=== PATIENT | male | born 1965 | race African-American/Black ===

== ENCOUNTER 2016-07-07 22:46 | Emergency (ER) | payer OTHER ==
[2016-07-07 22:53] VITALS: TEMP 97.6; BMI 35.8
--- NOTE | 2016-07-07 23:26 | PDOC ---
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 The patient reports headaches, nasal congestion, and a non productive cough. He states he recently visited [facility] ED 3 days ago and was discharged with a 10 day treatment of amoxicillin and a nasal spray. He reports a worsening frontal and right sided pressure-like headache when he coughs. He states his headache is worsened when he lays down at night. Denies fevers or chills. Denies chest pain or shortness of breath. Denies abdominal pain, nausea, vomiting, or diarrhea. Denies dysuria or chnages in urinary output. Social hx: The patient smoked cigarettes. <Jayda Sanchez - Last Filed: 07/08/16 00:16> <Heidi Wright - Last Filed: 07/08/16 04:54> - General Chief Complaint: Cold Symptoms Stated Complaint: HEADACHE/COUGH Time Seen by Provider: 07/07/16 23:25 Past History <Jayda Sanchez - Last Filed: 07/08/16 00:16> - Past Medical History Anemia: No Asthma: Yes Cancer: No Cardiac Disorders: No CVA: No COPD: No CHF: No DVT: Yes Dementia: No Diabetes: No GI Disorders: No Disorders: No HTN: Yes Hypercholesterolemia: No Liver Disease: No Psychiatric Problems: Yes (ANXIETY.) Seizures: No Thyroid Disease: No Other medical history: lupus - Surgical History Abdominal Surgery: Yes (hernia repair) Appendectomy: No Cardiac Surgery: No Cholecystectomy: No Lung Surgery: No Neurologic Surgery: No Orthopedic Surgery: Yes (right ankle 2006) - Immunization History Immunization Up to Date: Yes - Psycho/Social/Smoking Cessation Hx Anxiety: No Suicidal Ideation: No Smoking History: Current every day smoker Have you smoked in the past 12 months: Yes Number of Cigarettes Smoked Daily: 5 Information on smoking cessation initiated: No 'Breaking Loose' booklet given: 12/04/15 Hx Alcohol Use: No Drug/Substance Use Hx: No Substance Use Type: None <Heidi Wright - Last Filed: 07/08/16 04:54> - Past Medical History Allergies/Adverse Reactions: Allergies Allergy/AdvReac Type Severity Reaction Status Date / Time shellfish derived Allergy Hives Verified 07/07/16 22:56 Home Medications: Ambulatory Orders Albuterol Sulfate Inhaler - [Ventolin HFA Inhaler -] 1 - 2 inh PO QID PRN Escitalopram Oxalate [Lexapro -] 20 mg PO HS 03/02/14 Montelukast Na [Singulair -] 10 mg PO HS 03/02/14 Risperidone [Risperdal] 2 mg PO HS 03/02/14 Rivaroxaban [Xarelto -] 20 mg PO HS 03/02/14 Amlodipine Besylate 5 mg PO DAILY 06/02/15 Budesonide/Formeterol Fumarate [SYMBICORT 160/4.5mcg -] 1 inh PO DAILY 07/13/15 Hydroxychloroquine Sulfate [Plaquenil] 200 mg PO BID 07/13/15 Levocetirizine Dihydrochloride 5 mg PO PRN PRN 07/13/15 Hydrochlorothiazide [Hctz -] 25 mg PO DAILY 07/07/16 Ibuprofen [Motrin -] 400 mg PO TID 07/07/16 Losartan Potassium [Cozaar -] 25 mg PO DAILY 07/07/16 Diphenhydramine [Benadryl -] 1 tab PO BID #20 capsule 07/08/16 Review of Systems - Review of Systems Able to Perform ROS?: Yes Comments:: 07/08/16 00:16 CONSTITUTIONAL: Absent: fever, chills, diaphoresis, generalized weakness, malaise, loss of appetite HEENT: + nasal congestion Absent: rhinorrhea, throat pain, throat swelling, difficulty swallowing, mouth swelling, ear pain, eye pain, visual Changes CARDIOVASCULAR: Absent: chest pain, syncope, palpitations, irregular heart rate, lightheadedness , peripheral edema RESPIRATORY: + cough Absent: shortness of breath, dyspnea with exertion, orthopnea, wheezing, stridor , hemoptysis GASTROINTESTINAL: Absent: abdominal pain, abdominal distension, nausea, vomiting, diarrhea, constipation, melena, hematochezia GENITOURINARY: Absent: dysuria, frequency, urgency, hesitancy, hematuria, flank pain, genital pain MUSCULOSKELETAL: Absent: myalgia, arthralgia, joint swelling SKIN: Absent: rash, itching, pallor HEMATOLOGIC/IMMUNOLOGIC: Absent: easy bleeding, easy bruising, lymphadenopathy, frequent infections ENDOCRINE: Absent: unexplained weight gain, unexplained weight loss, heat intolerance, cold intolerance NEUROLOGIC: + headache Absent: focal weakness or paresthesias, dizziness, unsteady gait, seizure, mental status changes, bladder or bowel incontinence PSYCHIATRIC: Absent: anxiety, depression, suicidal or homicidal ideation, hallucinations. All Other Systems: Reviewed and Negative <Jayda Sanchez - Last Filed: 07/08/16 00:16> *Physical Exam - Vital Signs Last Vital Signs Temp Pulse Resp BP Pulse Ox 97.6 F 86 18 128/93 97 07/07/16 22:48 07/08/16 00:15 07/07/16 22:48 07/08/16 00:15 07/08/16 00:15 - Physical Exam Comments: 07/08/16 00:16 GENERAL: Well developed, well nourished. Awake and alert. No acute distress. HEENT: Normocephalic, atraumatic. PERRLA, EOMI. No conjunctival pallor. Sclera are non- icteric. Moist mucous membranes. Oropharynx is clear. NECK: Supple. Full ROM. No JVD. Carotid pulses 2+ and symmetric, without bruits. No thyromegaly. NCo lymphadenopathy. CARDIOVASCULAR: Regular rate and rhythm. No murmurs, rubs, or gallops. Distal pulses are 2+ and symmetric. PULMONARY: No evidence of respiratory distress. Lungs clear to auscultation bilaterally. No wheezing, rales or rhonchi. ABDOMINAL: Soft. Non-tender. Non-distended. No rebound or guarding. No organomegaly. Normoactive bowel sounds. MUSCULOSKELETAL Normal range of motion at all joints. No bony deformities or tenderness. No CVA tenderness. EXTREMITIES: No cyanosis. No clubbing. No edema. No calf tenderness. SKIN: Warm and dry. Normal capillary refill. No rashes. No jaundice. NEUROLOGICAL: Alert, awake, appropriate. Cranial nerves 2-12 intact. No deficits to light touch and temperature in face, upper extremities and lower extremities. No motor deficits in the in face, upper extremities and lower extremities. Normoreflexic in the upper and lower extremities. Normal speech. Toes are down- going bilaterally. Gait is normal without ataxia. PSYCHIATRIC: Cooperative. Good eye contact. Appropriate mood and affect. <Jayda Sanchez - Last Filed: 07/08/16 00:16> - Vital Signs Last Vital Signs Temp Pulse Resp BP Pulse Ox 97.6 F 103 H 18 130/89 99 07/07/16 22:48 07/07/16 22:48 07/07/16 22:48 07/07/16 22:48 07/07/16 22:48 <Heidi Wright - Last Filed: 07/08/16 04:54> ED Treatment Course - Medications Given in the ED: ED Medications Discontinued Medications Generic Name Dose Route Start Last Admin Trade Name Freq PRN Reason Stop Dose Admin Diphenhydramine HCl 50 mg 07/08/16 00:12 07/08/16 00:13 Benadryl - PO 07/08/16 00:13 50 mg ONCE ONE Administration <Jayda Sanchez - Last Filed: 07/08/16 00:16> Medical Decision Making - Medical Decision Making 07/08/16 04:49 Pt comes with cold and sinusitis. States that he was at [facility] 3 days ago and he was given amoxil (clavulanate?) and that he has been taking the meds and that he is not getting better after 3 days of abx. I explained that he needs to complete 7 days to be treated and to know if he is getting better. He feels congested, and wants meds for relief of congestion. He has HTN and I will not give him sudafed, as it raises BP; I will give benadryl. Pt will follow with PMD. He is a smoker and we discussed the need to quit smoking. He understands and states that he is trying. Pt has normal exam in the ER. BP is 126 systolic and his HR is in the 80s BPM. He is stable for discharge. <Heidi Wright - Last Filed: 07/08/16 04:54> *DC/Admit/Observation/Transfer - Attestations Scribe Attestion: 07/08/16 00:16 Documentation prepared by Jayda Sanchez, acting as medical dermatologist for Heidi Wright MD <Jayda Sanchez - Last Filed: 07/08/16 00:16> - Discharge Dispostion Admit: No <Heidi Wright - Last Filed: 07/08/16 04:54> Diagnosis at time of Disposition: Sinusitis - Discharge Dispostion Disposition: HOME Condition at time of disposition: Stable - Prescriptions Prescriptions: Diphenhydramine [Benadryl -] 1 tab PO BID #20 capsule - Referrals Referrals: You Mathews [Primary Care Provider] - - Patient Instructions Printed Discharge Instructions: DI for Common Cold, DI for Sinusitis, Nicotine Replacement Therapy Helps Reduce Smoking Temporarily, But Reductio, Serious Ways to Stop Smoking
[2016-07-08] MEDS ORDERED: diphenhydrAMINE HCL 25 MG CAPSULE (FP) PO ONE ×2 (00:12→00:14)
[2016-07-08 00:16] VITALS: BP 128/93; PULSE 86
== END 2016-07-08 00:30 | disposition home or self-care (01) ==
LOC: JER 22:46
DX: J32.8 Other chronic sinusitis (principal); I10 Essential (primary) hypertension; J45.909 Unspecified asthma, uncomplicated; F17.210 Nicotine dependence, cigarettes, uncomplicated; L93.0 Discoid lupus erythematosus; Z86.718 Personal history of other venous thrombosis and embolism; Z79.01 Long term (current) use of anticoagulants
CPT/HCPCS: 71020-TC; 99281-25

== ENCOUNTER 2016-10-01 13:05 | Emergency (ER) | payer OTHER ==
[2016-10-01 13:12] VITALS: BP 119/87; PULSE 80; TEMP 98.2; BMI 30.4
--- NOTE | 2016-10-01 14:03 | PDOC ---
History of Present Illness - General Chief Complaint: Respiratory Stated Complaint: COLD Time Seen by Provider: 10/01/16 13:38 History Source: Patient Exam Limitations: No Limitations - History of Present Illness Initial Comments: 10/01/16 13:56 Patient is a 51-year-old male, history of hypertension, lupus, asthma, anxiety, presents emergency Department with productive, green sputum cough. Cough is worse at night. Patient states he has attempted to take [id number]-diwcsic medication, TheraFlu, cough medicine with no resolve. Concerned because it is getting worse. No fever, feels sweaty at night. Denies a chest pain or shortness of breath, no dyspnea, no hemoptysis. Allergies: No known allergies Medications: See medication list Family History: Non-contributory Social History: Denies smoking, alcohol use, or IVDU Review of Systems GENERAL/CONSTITUTIONAL: No fever or chills. No weakness. No weight change. HEAD, EYES, EARS, NOSE AND THROAT: No change in vision. No ear pain or discharge. No sore throat. CARDIOVASCULAR: No chest pain or shortness of breath. RESPIRATORY: Cough, no wheezing, or hemoptysis. GASTROINTESTINAL: No nausea, vomiting, diarrhea or constipation. No rectal bleeding. GENITOURINARY: No dysuria, frequency, or change in urination. MUSCULOSKELETAL: No joint or muscle swelling or pain. No neck or back pain. SKIN AND BREASTS: No rash or easy bruising. NEUROLOGIC: No headache, vertigo, loss of consciousness, or loss of sensation. PSYCHIATRIC: No depression or anxiety. ENDOCRINE: No increased thirst. No abnormal weight change. HEMATOLOGIC/LYMPHATIC: No anemia, easy bleeding, or history of blood clots. ALLERGIC/IMMUNOLOGIC: No hives or skin allergy. No latex allergy. Physical Exam: GENERAL: The patient is awake, alert, and fully oriented, in no acute distress. HEAD: Normal with no signs of trauma. EYES: Pupils equal, round and reactive to light, extraocular movements intact, sclera anicteric, conjunctiva clear. ENT: Ears normal, nares patent, oropharynx clear without exudates. Moist mucous membranes. No uvula deviation NECK: Normal range of motion, supple without lymphadenopathy, JVD, or masses. LUNGS: Breath sounds rhonchi bilaterally, clear to auscultation bilaterally. No wheezes, and no crackles. HEART: Regular rate and rhythm, normal S1 and S2 without murmur, rub or gallop. ABDOMEN: Soft, nontender, normoactive bowel sounds. No guarding, no rebound. No masses. No bruising or abrasions MUSCULOSKELETAL: Normal range of motion, no edema. No clubbing or cyanosis. No cords, erythema, or tenderness. No CVA Tenderness with fist. NEUROLOGICAL: Cranial nerves II through XII grossly intact. Normal speech, normal gait. SKIN: Warm, Dry, normal turgor, no rashes or lesions noted. 10/01/16 14:05 Past History - Past Medical History Allergies/Adverse Reactions: Allergies Allergy/AdvReac Type Severity Reaction Status Date / Time shellfish derived Allergy Hives Verified 10/01/16 13:09 Home Medications: Ambulatory Orders Albuterol Sulfate Inhaler - [Ventolin HFA Inhaler -] 1 - 2 inh PO QID PRN Escitalopram Oxalate [Lexapro -] 20 mg PO HS 03/02/14 Montelukast Na [Singulair -] 10 mg PO HS 03/02/14 Risperidone [Risperdal] 2 mg PO HS 03/02/14 Rivaroxaban [Xarelto -] 20 mg PO HS 03/02/14 Amlodipine Besylate 5 mg PO DAILY 06/02/15 Budesonide/Formeterol Fumarate [SYMBICORT 160/4.5mcg -] 1 inh PO DAILY 07/13/15 Hydroxychloroquine Sulfate [Plaquenil] 200 mg PO BID 07/13/15 Levocetirizine Dihydrochloride 5 mg PO PRN PRN 07/13/15 Hydrochlorothiazide [Hctz -] 25 mg PO DAILY 07/07/16 Losartan Potassium [Cozaar -] 25 mg PO DAILY 07/07/16 Azithromycin [Zithromax 250mg Tablets -] 250 mg PO UTDICT #6 tab 10/01/16 Promethazine HCl [Phenergan Plain 6.25 MG/5 ML -] 5 ml PO TID #60 ml 10/01/16 Anemia: No Asthma: Yes Cancer: No Cardiac Disorders: No CVA: No COPD: No CHF: No DVT: Yes Dementia: No Diabetes: No GI Disorders: No Disorders: No HTN: Yes Hypercholesterolemia: No Liver Disease: No Psychiatric Problems: Yes (ANXIETY.) Seizures: No Thyroid Disease: No Other medical history: lupus - Surgical History Abdominal Surgery: Yes (hernia repair) Appendectomy: No Cardiac Surgery: No Cholecystectomy: No Lung Surgery: No Neurologic Surgery: No Orthopedic Surgery: Yes (right ankle 2006) - Immunization History Immunization Up to Date: Yes - Psycho/Social/Smoking Cessation Hx Anxiety: No Suicidal Ideation: No Smoking History: Current some day smoker Have you smoked in the past 12 months: Yes Number of Cigarettes Smoked Daily: 5 Information on smoking cessation initiated: No 'Breaking Loose' booklet given: 12/04/15 Hx Alcohol Use: No Drug/Substance Use Hx: No Substance Use Type: None *Physical Exam - Vital Signs Last Vital Signs Temp Pulse Resp BP Pulse Ox 98.2 F 80 18 119/87 100 10/01/16 13:09 10/01/16 13:09 10/01/16 13:09 10/01/16 13:09 10/01/16 13:09 Medical Decision Making - Medical Decision Making 10/01/16 14:03 A/P: Patient is a 51-year-old male with history of asthma, lupus, hypertension, presents emergency department for cough which is been greater than 6 days. Patient states that symptoms are getting worse. Because of patient's history of obesity patient home on azithromycin and promethazine for cough, follow up with PMD in 3 days if symptoms persist. If any chest pain, shortness of breath, or any other concerns return to ER *DC/Admit/Observation/Transfer Diagnosis at time of Disposition: Cough - Discharge Dispostion Disposition: HOME Condition at time of disposition: Good Admit: No - Prescriptions Prescriptions: Promethazine HCl [Phenergan Plain 6.25 MG/5 ML -] 5 ml PO TID #60 ml Azithromycin [Zithromax 250mg Tablets -] 250 mg PO UTDICT #6 tab - Patient Instructions Printed Discharge Instructions: Cough (Alternative Therapy), Cough Additional Instructions: Open the office of your primary care DrHéctor in 3 days if symptoms persist. If any chest pain, shortness of breath, or any other concerns return to ER
== END 2016-10-01 14:19 | disposition home or self-care (01) ==
LOC: JERFT 13:05
DX: R05 Cough (principal); J45.909 Unspecified asthma, uncomplicated; I10 Essential (primary) hypertension; F41.9 Anxiety disorder, unspecified; F17.210 Nicotine dependence, cigarettes, uncomplicated
CPT/HCPCS: 99281-25

== ENCOUNTER 2017-02-14 09:28 | Emergency (ER) | payer OTHER ==
[2017-02-14 09:33] VITALS: BMI 39.8
[2017-02-14 10:43] LABS: BASO % 0.9 % (0-2.0); HEMATOCRIT 45.7 % (35.4-49); HEMOGLOBIN 14.7 GM/dL (11.7-16.9); LYMPH % 26.8 % (8-40); MCHC 32.1 g/dl (32.0-35.9); MEAN CELL VOLUME 80.8 fl (80-96); MEAN PLT VOLUME 7.7 fl (7.5-11.1); MONO % 8.5 % (3.8-10.2); NEUT % 60.8 % (42.8-82.8); PLATELET COUNT 326 K/MM3 (134-434); RBC 5.65 M/mm3 (4.00-5.60); RDW 14.3 % (11.9-15.9)
[2017-02-14] MEDS ORDERED: ACETAMINOPHEN 325 MG TABLET (FP) PO ONE (10:43)
[2017-02-14] MEDS ORDERED: ACETAMINOPHEN 325 MG TABLET (FP) ONE (10:47)
--- NOTE | 2017-02-14 11:08 | PDOC ---
History of Present Illness <Domingo Garcia - Last Filed: 02/14/17 13:26> - General History Source: Patient Exam Limitations: No Limitations - History of Present Illness Initial Comments: 02/14/17 15:17 The patient is a 51 year old male, with a significant past medical history of hypertension, lupus, DVT on Eliquis, anxiety, and asthma, who presents to the emergency department with, left sided rib area/ left flank pain for approx. 10 hours. The patient reports that last night around midnight he coughed and experienced a sharp pain on his left side. The patient states the pain does not radiate. The patient reports the pain is exacerbated with movement and alleviated while sitting still. The patient denies recent heavy lifting or strenuous activity. The patient reports no new recent leg swelling but states his right leg is normally swollen after walking or activity. Patient states he is compliant with Xarelto and takes the medication every night. He denies any recent fevers, chills, headache or dizziness. He denies any recent nausea, vomit, diarrhea or constipation. He denies any recent chest pain or shortness of breath or dyspena on exertion. Allergies: Shellfish derived Past surgical history: Hernia surgery approx. one year ago. Primary Care Physician: Dr. You Mathews <Osei Dodson - Last Filed: 02/14/17 15:18> - General Chief Complaint: Pain Stated Complaint: ABD/SIDE PAIN, COUGH Time Seen by Provider: 02/14/17 10:16 Past History - Past Medical History Anemia: No Asthma: Yes Cancer: No Cardiac Disorders: No CVA: No COPD: No CHF: No DVT: Yes (rt thigh) Dementia: No Diabetes: No GI Disorders: No Disorders: No HTN: Yes Hypercholesterolemia: No Liver Disease: No Psychiatric Problems: Yes (ANXIETY.) Seizures: No Thyroid Disease: No Other medical history: lupus - Surgical History Abdominal Surgery: Yes (hernia repair) Appendectomy: No Cardiac Surgery: No Cholecystectomy: No Lung Surgery: No Neurologic Surgery: No Orthopedic Surgery: Yes (right ankle 2006) - Immunization History Immunization Up to Date: Yes - Suicide/Smoking/Psychosocial Hx Smoking History: Current some day smoker Have you smoked in the past 12 months: Yes Number of Cigarettes Smoked Daily: 5 Information on smoking cessation initiated: Yes 'Breaking Loose' booklet given: 01/05/18 Hx Alcohol Use: No Drug/Substance Use Hx: No Substance Use Type: None <Domingo Garcia - Last Filed: 02/14/17 13:26> <Osei Dodson - Last Filed: 02/14/17 15:18> - Past Medical History Allergies/Adverse Reactions: Allergies Allergy/AdvReac Type Severity Reaction Status Date / Time shellfish derived Allergy Hives Verified 02/14/17 09:29 Home Medications: Ambulatory Orders Albuterol Sulfate Inhaler - [Ventolin HFA Inhaler -] 1 - 2 inh PO QID PRN Escitalopram Oxalate [Lexapro -] 20 mg PO HS 03/02/14 Montelukast Na [Singulair -] 10 mg PO HS 03/02/14 Risperidone [Risperdal] 2 mg PO HS 03/02/14 Rivaroxaban [Xarelto -] 20 mg PO HS 03/02/14 Amlodipine Besylate 5 mg PO DAILY 06/02/15 Budesonide/Formeterol Fumarate [SYMBICORT 160/4.5mcg -] 1 inh PO DAILY 07/13/15 Hydroxychloroquine Sulfate [Plaquenil] 200 mg PO BID 07/13/15 Levocetirizine Dihydrochloride 5 mg PO PRN PRN 07/13/15 Hydrochlorothiazide [Hctz -] 25 mg PO DAILY 07/07/16 Losartan Potassium [Cozaar -] 25 mg PO DAILY 07/07/16 Review of Systems - Review of Systems Comments:: 02/14/17 15:17 Constitutional - Pt denies Fever, Chills, weakness, HEENT: denies vision changes, sore throat Respiratory: Denies cough, sob, hemoptysis Cardiac: denies chest pain, palpitations, light headedness, leg swelling Abd/GI: denies abd pain, nausea, vomiting, blood per rectum, melena, diarrhea : denies dysuria, frequency, discharge Musculskelatal: +Left sided rib area/ flank pain. No joint swelling skin - denies bruising, erythema, rash neurological: denies headache, numbness, focal weakness, tingling, ataxia, weakness hematologic: denies anemia, easy bruising, easy bleeding <Osei Dodson - Last Filed: 02/14/17 15:18> *Physical Exam - Vital Signs Last Vital Signs Temp Pulse Resp BP Pulse Ox 99.3 F 88 18 136/89 100 02/14/17 09:30 02/14/17 09:30 02/14/17 09:30 02/14/17 09:30 02/14/17 09:30 <Domingo Garcia - Last Filed: 02/14/17 13:26> - Vital Signs Last Vital Signs Temp Pulse Resp BP Pulse Ox 99.3 F 88 18 136/89 100 02/14/17 09:30 02/14/17 09:30 02/14/17 09:30 02/14/17 09:30 02/14/17 09:30 - Physical Exam Comments: 02/14/17 15:18 GENERAL: The patient is awake, alert, and fully oriented, Nontoxic - in no acute distress. HEAD: Normocephalic, atraumatic. EYES: extraocular movements intact, sclera anicteric, conjunctiva clear. ENT: Normal voice, Moist mucous membranes. NECK: Normal range of motion, supple without lymphadenopathy, JVD, or masses. LUNGS: Breath sounds equal, clear to auscultation bilaterally. No wheezes, no crackles, no rales. HEART: Regular rate and rhythm, normal S1 and S2 without murmur, rub or gallop. ABDOMEN: Soft, normoactive bowel sounds. No guarding, no rebound. No masses. BACK: + exactly reproducible tenderness left flank rib area. EXTREMITIES: +2 pitting edema right leg. -Lianet's sign. No calf tenderness. Normal range of motion. No clubbing or cyanosis. No cords, erythema, or tenderness. NEUROLOGICAL: No facial assymetry, Normal speech, normal gait. PSYCH: Normal mood, normal affect. SKIN: Warm, Dry, normal turgor, no rashes or lesions noted. <Osei Dodson - Last Filed: 02/14/17 15:18> Heart Score/ECG Review - ECG Impressions Comment:: 02/14/17 11:12 Twelve-lead EKG was performed and reviewed by me. There is normal sinus rhythm with a normal rate. Rate of 82 The axis is normal. Nonspecific T wave abnormalities PVC present <Domingo Garcia - Last Filed: 02/14/17 13:26> ED Treatment Course - LABORATORY CBC & Chemistry Diagram: 02/14/17 10:37 02/14/17 10:37 - ADDITIONAL ORDERS Additional order review: 02/14/17 10:37 RBC 5.65 H MCV 80.8 MCHC 32.1 RDW 14.3 MPV 7.7 Neutrophils % 60.8 Lymphocytes % 26.8 Monocytes % 8.5 Eosinophils % 3.0 Basophils % 0.9 - RADIOLOGY Radiology Studies Ordered: Category Date Time Status DUPLEX VASCUL US-1 LEG [US] Stat Ultrasound 02/14/17 10:43 Ordered - Medications Given in the ED: ED Medications Discontinued Medications Generic Name Dose Route Start Last Admin Trade Name Freq PRN Reason Stop Dose Admin Acetaminophen 975 mg 02/14/17 10:43 02/14/17 10:50 Tylenol - PO 02/14/17 10:44 975 mg ONCE ONE Administration <Domingo Garcia - Last Filed: 02/14/17 13:26> - LABORATORY CBC & Chemistry Diagram: 02/14/17 10:37 02/14/17 10:37 - ADDITIONAL ORDERS Additional order review: 02/14/17 10:37 RBC 5.65 H MCV 80.8 MCHC 32.1 RDW 14.3 MPV 7.7 Neutrophils % 60.8 Lymphocytes % 26.8 Monocytes % 8.5 Eosinophils % 3.0 Basophils % 0.9 - RADIOLOGY Radiograph Interpretation: 02/14/17 11:26 EXAM#: TYPE/EXAM: RESULT: [id number] RAD/CHEST X-RAY PORTABLE* Chest pain. Single portable chest x-ray. Comparison study July 05, 2016. Unremarkable contour of the cardiomediastinal silhouette. No evidence of pneumonia, CHF, pleural effusion or pneumothorax. The pulmonary vasculature is normal. No evidence of bulky hilar adenopathy. Intact visualized osseous structures. Normal variant unfused spinous process of T1, T2. Impression. No evidence of active pulmonary disease. Reported By: Rai Gunn MD 02/14/17 13:05 EXAM#: TYPE/EXAM: RESULT: [id number] US/DUPLEX VASCUL US-1 LEG EXAM: Right lower extremity venous duplex. INDICATION: Clinical suspicion for right lower extremity deep vein thrombosis. TECHNIQUE: Real-time grayscale, color Doppler and spectral Doppler sonogram of the right common femoral vein including its junction with the greater saphenous vein, the femoral, profunda femoral, popliteal and posterior tibial veins was performed by the technologist utilizing compression maneuvers, in the right lower extremity. Images are submitted for review. COMPARISON: No prior right lower extremity duplex. FINDINGS: There is no evidence of acute deep vein thrombosis in the right lower extremity. The interrogated veins, as listed above, demonstrate compressibility and flow related Doppler signal. IMPRESSION: No evidence of deep vein thrombosis in the right lower extremity, as above. Reported By: Cuca Torres DO - Medications Given in the ED: ED Medications Discontinued Medications Generic Name Dose Route Start Last Admin Trade Name Freq PRN Reason Stop Dose Admin Acetaminophen 975 mg 02/14/17 10:43 02/14/17 10:50 Tylenol - PO 02/14/17 10:44 975 mg ONCE ONE Administration <Osei Dodson - Last Filed: 02/14/17 15:18> Medical Decision Making - Medical Decision Making 02/14/17 11:08 51-year-old gentleman history of lupus, DVT on eliquis, htn, presents with complaint of L sided chest pain. Pt states he started having chest pain overnight worse when he moves around and takes a deep breath no pain at rest and not moving. pt denies any sob, burch, cough, hemoptysis, new leg swelling. pt notes he does have frequent leg swelling in the R leg that worse after he walks and improved when he sleeps. he does not have any signficant new leg swelling. no homans sign of calf tenderness. pt also has reproducible tenderness on his L chest suspect muscle strain consider cardiac etiology also consider PE, however unlikely without any sob, cough, hemoptysis and already currently on a/c will ck cxr, labs, US of leg to r/o DVT A portion of this note was documented by scribe services under my direction. I have reviewed the details of the note, within reason, and agree with the documentation with the following case summary and management plan written by me 02/14/17 13:26 pts labs reviewed cxr neg DVT study negative will dc the pt with pmd fu and supportive care dx: bianca herr I discussed the physical exam findings, ancillary test results and final diagnoses with the patient. I answered all of the patient's questions. The patient was satisfied with the care received and felt comfortable with the discharge plan and treatment plan. The patient will call their primary care physician within 24 hours to arrange follow-up and will return to the Emergency Department with any new, persistent or worsening symptoms. <Domingo Garcia - Last Filed: 02/14/17 13:26> *DC/Admit/Observation/Transfer - Discharge Dispostion Admit: No <Domingo Garcia - Last Filed: 02/14/17 13:26> - Attestations Scribe Attestion: 02/14/17 11:31 Documentation prepared by Osei Dodson, acting as remote medical coder for Domingo Garcia MD. <Osei Dodson - Last Filed: 02/14/17 15:18> Diagnosis at time of Disposition: Rib pain on left side - Discharge Dispostion Disposition: HOME Condition at time of disposition: Improved - Referrals Referrals: You Mathesw [Primary Care Provider] - - Patient Instructions Printed Discharge Instructions: DI for Chest Pain Additional Instructions: Return to the emergency department immediately with ANY new, persistent or worsening symptoms. I suspect that you're chest pain is due to a muscle strain. Take Tylenol as needed for pain. Avoid any heavy lifting. If you have any shortness of breath, or coughing up blood, have worsening pain or any other symptoms return for further evaluation. You MUST call and follow up with your doctor in 4-5 days for further evaluation of your symptoms. Results were discussed with you. Please make sure your doctor reviews the results of your emergency evaluation. Print Language: AZERI - Post Discharge Activity
[2017-02-14 11:18] LABS: ALBUMIN 3.5 g/dl (3.4-5.0); ANION GAP 6 (8-16); BILIRUBIN,TOTAL 0.6 mg/dL (0.2-1.0); BLOOD UREA NITROGEN 15 mg/dL (7-18); CALCIUM 8.4 mg/dL (8.5-10.1); CHLORIDE 104 mmol/L (98-107); CO2 27 mmol/L (21-32); CREATININE 1.4 mg/dL (0.7-1.3); GLUCOSE,RANDOM 96 mg/dL (74-106); POTASSIUM 4.3 mmol/L (3.5-5.1); SGOT/AST 27 U/L (15-37); SGPT/ALT 48 U/L (12-78); SODIUM 137 mmol/L (136-145); TOT PROT 7.5 g/dl (6.4-8.2)
[2017-02-14 11:21] LABS: ALK PHOS 61 U/L (45-117)
[2017-02-14 12:47] VITALS: BP 127/82; PULSE 78; TEMP 98.4
--- NOTE | 2017-02-15 13:34 | EKG ---
Test Reason : Blood Pressure : / mmHG Vent. Rate : 082 BPM Atrial Rate : 082 BPM P-R Int : 128 ms QRS Dur : 104 ms QT Int : 376 ms P-R-T Axes : 029 037 030 degrees QTc Int : 439 ms SINUS RHYTHM WITH OCCASIONAL PREMATURE VENTRICULAR COMPLEXES NONSPECIFIC T WAVE ABNORMALITY ABNORMAL ECG WHEN COMPARED WITH ECG OF 04-DEC-2015 11:50, PREMATURE VENTRICULAR COMPLEXES ARE NOW PRESENT Confirmed by BILLIE JUARES MD ([id number]) on 02/15/2017 1:34:32 PM Referred By: Confirmed By:BILLIE JUARES MD
== END 2017-02-14 13:46 | disposition home or self-care (01) ==
LOC: JER 09:28 → JERFT 09:28 → JER 13:46
DX: R07.81 Pleurodynia (principal); I10 Essential (primary) hypertension; F41.9 Anxiety disorder, unspecified; J45.909 Unspecified asthma, uncomplicated
CPT/HCPCS: 36415; 71045-TC; 80053; 84484; 85025; 93005; 93010; 93971-TC; 99283-25

== ENCOUNTER 2018-02-19 15:30 | Emergency (ER) | payer OTHER ==
--- NOTE | 2018-02-19 15:41 | PDOC ---
Rapid Medical Evaluation Time Seen by Provider: 02/19/18 15:39 Medical Evaluation: Allergies Allergy/AdvReac Type Severity Reaction Status Date / Time shellfish derived Allergy Hives Verified 03/19/17 22:38 02/19/18 15:39 Pt c/o: cough, nasal congestion, worse at night, no fever, no meds taken Pt on brief exam: VSS, LCTA Pt ordered for: cxr, Pt to proceed to the ED Discharge Disposition - Diagnosis Nasal congestion, Cough - Referrals - Patient Instructions - Post Discharge Activity
[2018-02-19 15:44] VITALS: BP 119/74; PULSE 85; TEMP 98.5; BMI 30.4
[2018-02-19] MEDS ORDERED: ALBUTEROL SO4 2.5/IPRATROPIUM 0.5 INH SOL 3 ML VIAL.NEB. NEB ONE ×2 (16:50→16:56)
--- NOTE | 2018-02-19 16:56 | PDOC ---
History of Present Illness - General Chief Complaint: Cold Symptoms Stated Complaint: COLD, COUGH Time Seen by Provider: 02/19/18 15:39 History Source: Patient Exam Limitations: No Limitations - History of Present Illness Initial Comments: 02/19/18 16:50 Patient came to emergency department for evaluation of worsening cough, chest pain, and headache pain with worsening cough. Suffers from lupus, and takes Plaquenil for alleviation of symptoms but no steroids. Denies fever but states phlegm production is a thick yellow. With some symptomatic relief rid received flu and pneumonia vaccinations this year Timing/Duration: reports: getting worse Severity: reports: mild, moderate Associated Symptoms: reports: denies symptoms, cough, nasal congestion, nasal drainage, wheezing Past History - Travel Traveled outside of the country in the last 30 days: No Close contact w/someone who was outside of country & ill: No - Past Medical History Allergies/Adverse Reactions: Allergies Allergy/AdvReac Type Severity Reaction Status Date / Time shellfish derived Allergy Hives Verified 03/19/17 22:38 Home Medications: Ambulatory Orders Albuterol Sulfate Inhaler - [Ventolin HFA Inhaler -] 1 - 2 inh PO QID PRN Escitalopram Oxalate [Lexapro -] 20 mg PO HS 03/02/14 Montelukast Na [Singulair -] 10 mg PO HS 03/02/14 Risperidone [Risperdal] 2 mg PO HS 03/02/14 Rivaroxaban [Xarelto -] 20 mg PO HS 03/02/14 Amlodipine Besylate 5 mg PO DAILY 06/02/15 Budesonide/Formeterol Fumarate [SYMBICORT 160/4.5mcg -] 1 inh PO DAILY 07/13/15 Hydroxychloroquine Sulfate [Plaquenil] 200 mg PO BID 07/13/15 Levocetirizine Dihydrochloride 5 mg PO PRN PRN 07/13/15 Hydrochlorothiazide [Hctz -] 25 mg PO DAILY 07/07/16 Losartan Potassium [Cozaar -] 25 mg PO DAILY 07/07/16 Azithromycin [Zithromax -] 250 mg PO UTDICT #6 tab 02/19/18 traZODone HCL 10 mg .ROUTE DAILY 02/19/18 Anemia: No Asthma: Yes Cancer: No Cardiac Disorders: No CVA: No COPD: No CHF: No DVT: Yes (rt thigh) Dementia: No Diabetes: No GI Disorders: No Disorders: No HTN: Yes Hypercholesterolemia: No Liver Disease: No Psychiatric Problems: Yes (ANXIETY.) Seizures: No Thyroid Disease: No - Surgical History Abdominal Surgery: Yes (hernia repair) Appendectomy: No Cardiac Surgery: No Cholecystectomy: No Lung Surgery: No Neurologic Surgery: No Orthopedic Surgery: Yes (right ankle 2006) - Immunization History Immunization Up to Date: Yes - Suicide/Smoking/Psychosocial Hx Smoking History: Never smoked Have you smoked in the past 12 months: Yes Number of Cigarettes Smoked Daily: 5 'Breaking Loose' booklet given: 02/14/17 Hx Alcohol Use: No Drug/Substance Use Hx: No Substance Use Type: None Review of Systems - Review of Systems Able to Perform ROS?: Yes Is the patient limited Gambian proficient: Yes Constitutional: Yes: Symptoms Reported HEENTM: Yes: Symptoms Reported, See HPI Respiratory: Yes: Symptoms reported, See HPI, Cough Musculoskeletal: Yes: Symptoms Reported Integumentary: No: Symptoms Reported Neurological: Yes: Symptoms reported, See HPI All Other Systems: Reviewed and Negative *Physical Exam - Vital Signs Last Vital Signs Temp Pulse Resp BP Pulse Ox 98.5 F 85 16 119/74 95 02/19/18 15:42 02/19/18 15:42 02/19/18 15:42 02/19/18 15:42 02/19/18 15:42 - Physical Exam General Appearance: Yes: Nourished, Appropriately Dressed, Mild Distress HEENT: positive: MAO, Normal ENT Inspection, TMs Normal, Pharynx Normal Neck: positive: Supple. negative: Tender Respiratory/Chest: positive: Wheezing. negative: Lungs Clear (coarse inspiratory and expiratory breath sounds, but diminished bilaterally. Some faint wheezing expiratory heard bilaterally), Normal Breath Sounds Gastrointestinal/Abdominal: positive: Normal Bowel Sounds, Soft. 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 X-ray negative for infiltrates/ pneumothorax. Influenza testing negative. We'll treat with Zithromax for bronchitis this patient is immunosuppressed with fevers and productive cough. *DC/Admit/Observation/Transfer Diagnosis at time of Disposition: Bronchitis - Discharge Dispostion Disposition: HOME Condition at time of disposition: Stable Decision to Admit order: No - Prescriptions Prescriptions: Azithromycin [Zithromax -] 250 mg PO UTDICT #6 tab - Referrals Referrals: You Mathews [Primary Care Provider] - - Patient Instructions Printed Discharge Instructions: DI for Acute Bronchitis Additional Instructions: Rest, drink lots of fluids: Teas, water, soups, Pedialyte Saltwater gargles Steamy showers/seem to face break up mucus Avoid contact with others until fevers and cough resolved Lots of handwashing and good hygiene Continue [id number] medications for symptomatic relief Azithromycin as directed Tylenol or Motrin for fever and pain Followup with private physician in one to 2 days as needed Return to emergency department for worsened symptoms, fevers, dehydration - Post Discharge Activity Forms/Work/School Notes: Back to Work
== END 2018-02-19 18:17 | disposition home or self-care (01) ==
LOC: JERFT 15:30
PROC: 3E0F7GC Introduction of Other Therapeutic Substance into Respiratory Tract, Via Natural or Artificial Opening (ICD-10-PCS; principal; 2018-02-19)
DX: J40 Bronchitis, not specified as acute or chronic (principal); I10 Essential (primary) hypertension; J45.909 Unspecified asthma, uncomplicated; F41.9 Anxiety disorder, unspecified; Z86.718 Personal history of other venous thrombosis and embolism; Z79.01 Long term (current) use of anticoagulants
CPT/HCPCS: 71046-TC-FY; 87804; 99281-25

== ENCOUNTER 2018-07-14 17:28 | Emergency (ER) | payer OTHER | END 2018-07-14 19:19 | disposition home or self-care (01) | LOC: JERFT 17:28 ==

== ENCOUNTER 2018-12-15 14:08 | Emergency (ER) | payer OTHER ==
[2018-12-15 14:13] VITALS: BP 115/72; PULSE 90; TEMP 98.2; BMI 38.8
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
[2018-12-15] MEDS ORDERED: KETOROLAC TROMETHAMINE 60 MG/2 ML VIAL IM ONE (15:03)
--- NOTE | 2018-12-15 15:07 | PDOC ---
History of Present Illness - General Chief Complaint: Headache Stated Complaint: HEADACHE Time Seen by Provider: 12/15/18 14:11 History Source: Patient - History of Present Illness Timing/Duration: reports: 1 week Past History - Past Medical History Allergies/Adverse Reactions: Allergies Allergy/AdvReac Type Severity Reaction Status Date / Time shellfish derived Allergy Hives Verified 12/15/18 14:14 Home Medications: Ambulatory Orders Albuterol Sulfate Inhaler - [Ventolin HFA Inhaler -] 1 - 2 inh PO QID PRN Escitalopram Oxalate [Lexapro -] 20 mg PO HS 03/02/14 Montelukast Na [Singulair -] 10 mg PO HS 03/02/14 Risperidone [Risperdal] 2 mg PO HS 03/02/14 Rivaroxaban [Xarelto -] 20 mg PO HS 03/02/14 Amlodipine Besylate 5 mg PO DAILY 06/02/15 Budesonide/Formeterol Fumarate [SYMBICORT 160/4.5mcg -] 1 inh PO DAILY 07/13/15 Hydroxychloroquine Sulfate [Plaquenil] 200 mg PO BID 07/13/15 Levocetirizine Dihydrochloride 5 mg PO PRN PRN 07/13/15 Hydrochlorothiazide [Hctz -] 25 mg PO DAILY 07/07/16 Losartan Potassium [Cozaar -] 25 mg PO DAILY 07/07/16 Azithromycin [Zithromax -] 250 mg PO UTDICT #6 tab 02/19/18 traZODone HCL 10 mg .ROUTE DAILY 02/19/18 Cyclobenzaprine HCl [Flexeril 10 mg] 10 mg PO HS PRN #10 tablet 07/14/18 Anemia: No Asthma: Yes Cancer: No Cardiac Disorders: No CVA: No COPD: No CHF: No DVT: Yes (rt thigh) Dementia: No Diabetes: No GI Disorders: No Disorders: No HTN: Yes Hypercholesterolemia: No Liver Disease: No Psychiatric Problems: Yes (ANXIETY.) Seizures: No Thyroid Disease: No - Surgical History Abdominal Surgery: Yes (hernia repair) Appendectomy: No Cardiac Surgery: No Cholecystectomy: No Lung Surgery: No Neurologic Surgery: No Orthopedic Surgery: Yes (right ankle 2006) - Immunization History Immunization Up to Date: Yes - Psycho Social/Smoking Cessation Hx Smoking History: Never smoked Have you smoked in the past 12 months: Yes Number of Cigarettes Smoked Daily: 6 'Breaking Loose' booklet given: 02/14/17 Hx Alcohol Use: No Drug/Substance Use Hx: No Substance Use Type: None Review of Systems - Review of Systems Constitutional: No: Chills, Fever HEENTM: Yes: Nose Congestion. No: Blurred Vision Neurological: Yes: Headache. No: Numbness, Weakness, Dizziness *Physical Exam - Vital Signs Last Vital Signs Temp Pulse Resp BP Pulse Ox 98.2 F 90 18 115/72 98 12/15/18 14:10 12/15/18 14:10 12/15/18 14:10 12/15/18 14:10 12/15/18 14:10 - Physical Exam General Appearance: Yes: Appropriately Dressed. No: Apparent Distress HEENT: positive: Normal ENT Inspection, Normal Voice, TMs Normal, Pharynx Normal. 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 Patient reports right-sided headache x1 week, on and off, unable to describe, 8 out of 10, worse when laying down. No dizziness, nausea, vomiting or visual changes. No unexplained weight loss. No history of similar pain in the past. Went to [facility], [place] 4 days ago and had negative CT. Has been taking Excedrin which does relieve the pain. Patient states he is here today because he is also having some congestion and worried he might have a sinus infection. No rhinorrhea, facial pain, dental pain, fever, chills, or neck pain. Patient well-appearing and stable with unremarkable exam. No red flags at this time. Will Dc with neuro follow-up for further evaluation Discharge - Discharge Information Problems reviewed: Yes Clinical Impression/Diagnosis: Headache Qualifiers: Headache type: unspecified Headache chronicity pattern: acute headache Intractability: not intractable Qualified Code(s): R51 - Headache Condition: Good Disposition: HOME - Follow up/Referral Referrals: Kashmir Lynn MD [Staff Physician] - - Patient Discharge Instructions Patient Printed Discharge Instructions: DI for Headache Additional Instructions: The cause of your headache is unclear at this time. Continue Excedrin as needed for your headache and follow-up with Dr. Lynn of neurology for further evaluation - Post Discharge Activity
[2018-12-15] MEDS ORDERED: KETOROLAC TROMETHAMINE 60 MG/2 ML VIAL ONE (15:16)
== END 2018-12-15 15:29 | disposition home or self-care (01) ==
LOC: JERFT 14:08
DX: R51 Headache (principal); I10 Essential (primary) hypertension; J45.909 Unspecified asthma, uncomplicated; F41.9 Anxiety disorder, unspecified; Z86.718 Personal history of other venous thrombosis and embolism; Z79.01 Long term (current) use of anticoagulants
CPT/HCPCS: 99281-25

== ENCOUNTER 2018-12-23 16:37 | Emergency (ER) | payer OTHER ==
--- NOTE | 2018-12-23 16:50 | PDOC ---
Rapid Medical Evaluation Time Seen by Provider: 12/23/18 16:47 Medical Evaluation: Allergies Allergy/AdvReac Type Severity Reaction Status Date / Time shellfish derived Allergy Hives Verified 12/15/18 14:14 12/23/18 16:48 I have performed a brief in-person evaluation of this patient. The patient presents with a chief complaint of: sacral pain x 5 days, fell and landed on tailbone, worse with ambulation and coughing, no meds taken Pertinent physical exam findings: sacral tenderness I have ordered the following: coccyx xray The patient will proceed to the ED for further evaluation. Discharge Disposition - Diagnosis Sacral pain - Referrals - Patient Instructions - Post Discharge Activity
[2018-12-23 16:52] VITALS: BP 109/73; PULSE 94; TEMP 97.4; BMI 37.5
--- NOTE | 2018-12-23 17:32 | PDOC ---
History of Present Illness - General Chief Complaint: Back Pain Stated Complaint: PAIN IN SACRAL REGION, s/p FALL FRIDAY Time Seen by Provider: 12/23/18 16:47 - History of Present Illness Initial Comments: 12/23/18 17:28 53-year-old male with multiple comorbidities including spontaneous brain bleed last week lupus hypertension presents for evaluation after fall onto his coccyx about 7 days ago. He has mild radicular symptoms without loss of bowel bladder function or saddle paresthesias Past History - Past Medical History Allergies/Adverse Reactions: Allergies Allergy/AdvReac Type Severity Reaction Status Date / Time shellfish derived Allergy Hives Verified 12/23/18 16:51 Home Medications: Ambulatory Orders Albuterol Sulfate Inhaler - [Ventolin HFA Inhaler -] 1 - 2 inh PO QID PRN Escitalopram Oxalate [Lexapro -] 20 mg PO HS 03/02/14 Montelukast Na [Singulair -] 10 mg PO HS 03/02/14 Risperidone [Risperdal] 2 mg PO HS 03/02/14 Rivaroxaban [Xarelto -] 20 mg PO HS 03/02/14 Amlodipine Besylate 5 mg PO DAILY 06/02/15 Budesonide/Formeterol Fumarate [SYMBICORT 160/4.5mcg -] 1 inh PO DAILY 07/13/15 Hydroxychloroquine Sulfate [Plaquenil] 200 mg PO BID 07/13/15 Levocetirizine Dihydrochloride 5 mg PO PRN PRN 07/13/15 Hydrochlorothiazide [Hctz -] 25 mg PO DAILY 07/07/16 Losartan Potassium [Cozaar -] 25 mg PO DAILY 07/07/16 Azithromycin [Zithromax -] 250 mg PO UTDICT #6 tab 02/19/18 traZODone HCL 10 mg .ROUTE DAILY 02/19/18 Cyclobenzaprine HCl [Flexeril 10 mg] 10 mg PO HS PRN #10 tablet 07/14/18 Docusate Sodium [Colace -] 100 mg PO TID #21 capsule 12/23/18 Anemia: No Asthma: Yes Cancer: No Cardiac Disorders: No CVA: Yes COPD: No CHF: No DVT: Yes (rt thigh) Dementia: No Diabetes: No GI Disorders: No Disorders: No HTN: Yes Hypercholesterolemia: No Liver Disease: No Psychiatric Problems: Yes (ANXIETY.) Seizures: No Thyroid Disease: No Other medical history: Lupus - Surgical History Abdominal Surgery: Yes (hernia repair) Appendectomy: No Cardiac Surgery: No Cholecystectomy: No Lung Surgery: No Neurologic Surgery: No Orthopedic Surgery: Yes (right ankle 2006) - Immunization History Immunization Up to Date: Yes - Psycho Social/Smoking Cessation Hx Smoking History: Current every day smoker Have you smoked in the past 12 months: Yes Number of Cigarettes Smoked Daily: 5 Information on smoking cessation initiated: Yes 'Breaking Loose' booklet given: 02/14/17 Hx Alcohol Use: No Drug/Substance Use Hx: No Substance Use Type: None Review of Systems - Review of Systems Musculoskeletal: Yes: See HPI *Physical Exam - Vital Signs Last Vital Signs Temp Pulse Resp BP Pulse Ox 97.4 F L 94 H 19 109/73 97 12/23/18 16:49 12/23/18 16:49 12/23/18 16:49 12/23/18 16:49 12/23/18 16:49 - Physical Exam Comments: 12/23/18 17:29 Lumbar spine skin color and temperature normal range of motion is slightly limited because of pain. There is tenderness over the area of the coccyx. 12/23/18 17:30 No gross sensorimotor deficits neurovascular intact Medical Decision Making - Medical Decision Making 12/23/18 17:29 X-rays of the lumbar sacral spine and coccyx show posterior translation of C1 on to C2 and see 3 onto C2 there appears to be a fracture at the proximal aspect of C3 Patient is on multiple pain medications already he takes Flexeril and Percocet this would be sufficient I will add a stool softener as he has been constipated as well. I have advised him on the use of a donut pad Discharge - Discharge Information Problems reviewed: Yes Clinical Impression/Diagnosis: Sacral pain, Acute coccygeal pain Condition: Stable Disposition: HOME - Admission No - Follow up/Referral Referrals: You Mathews [Primary Care Provider] - Guanaco Dsouza MD, FAANS [Staff Physician] - - Patient Discharge Instructions Additional Instructions: Please take the Colace as directed. Continue with your regular medications as well as your Percocet and Flexeril return to the emergency room for worsening symptoms and without fail please follow-up with neurosurgery in 1 to 2 days for further evaluation and treatment options. - Post Discharge Activity
== END 2018-12-23 17:37 | disposition home or self-care (01) ==
LOC: JERFT 16:37
DX: M53.3 Sacrococcygeal disorders, not elsewhere classified (principal); Z91.013 Allergy to seafood; F17.210 Nicotine dependence, cigarettes, uncomplicated; F41.9 Anxiety disorder, unspecified; J45.909 Unspecified asthma, uncomplicated; I10 Essential (primary) hypertension; M32.9 Systemic lupus erythematosus, unspecified
CPT/HCPCS: 72220-TC-FY; 99282-25

== ENCOUNTER 2020-11-25 19:42 | Emergency (ER) | payer OTHER ==
[2020-11-25 19:59] VITALS: BP 130/83; PULSE 95; TEMP 98.5; BMI 38.9
== END 2020-11-25 20:55 | disposition home or self-care (01) ==
LOC: JERFT 19:42
DX: J06.9 Acute upper respiratory infection, unspecified (principal); Z11.52 Encounter for screening for COVID-19
CPT/HCPCS: 99283-25; C9803; U0003; U0005

== ENCOUNTER 2021-11-03 08:06 | Observation (INO) | payer OTHER ==
[2021-11-03 08:32] VITALS: TEMP 98.5; BMI 37.2
[2021-11-03] MEDS ORDERED: SODIUM CHLORIDE 0.9% 500 ML INFUS.BAG IV ONE (09:06)
[2021-11-03 10:41] LABS: URINE APPEARANCE CLEAR; URINE BILIRUBIN NEGATIVE (NEGATIVE); URINE COLOR YELLOW; URINE GLUCOSE (UA) NEGATIVE (NEGATIVE); URINE KETONE NEGATIVE (NEGATIVE); URINE LEUK ESTERASE NEGATIVE (NEGATIVE); URINE NITRITE NEGATIVE (NEGATIVE); URINE PROTEIN NEGATIVE (NEGATIVE); URINE UROBILINOGEN 0.2 mg/dL (0.2-1.0)
[2021-11-03 10:48] LABS: BASO % 0.5 % (0-2.0); EOS % 1.1 % (0-4.5); HEMATOCRIT 46.9 % (35.4-49); HEMOGLOBIN 15.6 GM/dL (11.7-16.9); LYMPH % 17.1 % (8-40); MCH 26.8 pg (25.7-33.7); MCHC 33.3 g/dl (32.0-35.9); MEAN CELL VOLUME 80.4 fl (80-96); MEAN PLT VOLUME 8.1 fl (7.5-11.1); NEUT % 73.3 % (42.8-82.8); PLATELET COUNT 309 10^3/uL (134-434); RBC 5.83 M/mm3 (4.00-5.60); RDW 14.3 % (11.9-15.9); WHITE BLOOD COUNT 6.1 K/mm3 (4.0-10.0)
[2021-11-03 10:50] LABS: PHENCYCLIDINE,URINE NEGATIVE (NEGATIVE); URINE BENZODIAZEPINES NEGATIVE (NEGATIVE)
[2021-11-03 10:51] LABS: COCAINE, UR NEGATIVE (NEGATIVE); METHADONE, UR NEGATIVE (NEGATIVE); OPIATES, URI NEGATIVE (NEGATIVE); URINE AMPHETAMINES NEGATIVE (NEGATIVE)
[2021-11-03 10:52] LABS: URINE BARBITURATES NEGATIVE (NEGATIVE)
[2021-11-03 11:03] LABS: ACTIVATED PTT 67.7 SECONDS (25.2-36.5); INR 1.08 (0.83-1.09); PROTHROMBIN TIME (PATIENT) 12.4 SEC (9.7-13.0)
[2021-11-03 11:15] LABS: CHLORIDE 108 mmol/L (98-107); SODIUM 142 mmol/L (136-145)
[2021-11-03 11:17] LABS: ANION GAP 7 MMOL/L (8-16); BLOOD UREA NITROGEN 16.7 mg/dL (7-18); CALCIUM 9.1 mg/dL (8.5-10.1); CO2 28 mmol/L (21-32); GLUCOSE,RANDOM 92 mg/dL (74-106); MAGNESIUM 2.4 mg/dL (1.8-2.4)
[2021-11-03 11:18] LABS: ALBUMIN 3.5 g/dl (3.4-5.0)
[2021-11-03 11:20] LABS: CREATININE 1.5 mg/dL (0.55-1.3); PHOSPHOROUS 1.9 mg/dL (2.5-4.9); SGPT/ALT 41 U/L (13-61)
[2021-11-03 11:21] LABS: SGOT/AST 27 U/L (15-37)
[2021-11-03 11:22] LABS: BILIRUBIN,TOTAL 0.3 mg/dL (0.2-1); TOT PROT 7.1 g/dl (6.4-8.2)
[2021-11-03 11:23] LABS: ALK PHOS 80 U/L (45-117)
[2021-11-03] MEDS ORDERED: LACTATED RINGERS SOLUTION 1,000 ML IV SCH (12:30)
[2021-11-03] MEDS ORDERED: ALBUTEROL SO4 HFA INHALER IH PRN (12:33)
[2021-11-03 17:48] VITALS: BP 130/70; PULSE 70; RESP 20
[2021-11-03] MEDS ORDERED: RIVAROXABAN 20 MG TABLET PO SCH (18:00)
[2021-11-03] MEDS ORDERED: busPIRone HCL 10 MG TABLET (FP) PO SCH (22:00)
[2021-11-04] MEDS ORDERED: CHLORTHALIDONE 25 MG TABLET PO SCH (10:00)
[2021-11-04] MEDS ORDERED: LOSARTAN POTASSIUM 50 MG TABLET PO SCH (10:00)
[2021-11-04] MEDS ORDERED: BUDESONIDE/FORMETEROL FUMARATE 160/4.5 mcg INHALER IH SCH (10:00)
[2021-11-04] MEDS ORDERED: ESCITALOPRAM OXALATE 20 MG TABLET PO SCH (10:00)
[2021-11-04] MEDS ORDERED: MONTELUKAST NA 10 MG TABLET PO SCH (10:00)
[2021-11-04] MEDS ORDERED: HYDROXYCHLOROQUINE SO4 200 MG TABLET (FP) PO SCH (10:00)
== END 2021-11-03 18:19 | disposition left against medical advice (07) ==
LOC: JER 08:06 → JERBED 12:05
PROVIDERS: ADMIT Internal Medicine; ATTEND Internal Medicine
PROC: 3E0337Z Introduction of Electrolytic and Water Balance Substance into Peripheral Vein, Percutaneous Approach (ICD-10-PCS; principal; 2021-11-03)
DX: R51.9 Headache, unspecified (principal); M32.9 Systemic lupus erythematosus, unspecified; Z91.013 Allergy to seafood; R94.31 Abnormal electrocardiogram [ECG] [EKG]; F41.9 Anxiety disorder, unspecified; J45.909 Unspecified asthma, uncomplicated; E66.8 Other obesity; Z68.37 Body mass index [BMI] 37.0-37.9, adult; I10 Essential (primary) hypertension; Z79.01 Long term (current) use of anticoagulants; Z86.718 Personal history of other venous thrombosis and embolism; G89.29 Other chronic pain; Z86.73 Personal history of transient ischemic attack (TIA), and cerebral infarction without residual deficits; B88.8 Other specified infestations; M54.9 Dorsalgia, unspecified; F17.210 Nicotine dependence, cigarettes, uncomplicated
CPT/HCPCS: 36415; 70450-TC; 71045-TC-FY; 80053; 80307; 81003; 82550; 82553; 82962; 83735; 84100; 84146; 84443; 84484; 85025; 85610; 85730; 86850; 86900; 86901; 93005; 93010; 99285-25; C9803-CS; G0378; U0003; U0005

== ENCOUNTER 2022-06-21 01:08 | Observation (INO) | payer OTHER ==
[2022-06-21 01:23] VITALS: BMI 38.8
[2022-06-21 02:10] LABS: VENOUS BASE EXCESS -2.2 mmol/L (-2-2); VENOUS O2 SATURATION 46.1 % (70-80); VENOUS PCO2 42.5 mmHg (38-52); VENOUS PH 7.357 (7.310-7.410)
[2022-06-21 02:11] LABS: BASO % 1.1 % (0-2.0); EOS % 0.9 % (0-4.5); HEMATOCRIT 44.6 % (35.4-49); HEMOGLOBIN 15.3 GM/dL (11.7-16.9); LYMPH % 13.8 % (8-40); MCH 27.4 pg (25.7-33.7); MCHC 34.2 g/dl (32.0-35.9); MEAN CELL VOLUME 80.2 fl (80-96); MEAN PLT VOLUME 8.2 fl (7.5-11.1); MONO % 4.3 % (3.8-10.2); NEUT % 79.9 % (42.8-82.8); PLATELET COUNT 299 10^3/uL (134-434); RBC 5.56 M/mm3 (4.00-5.60); RDW 14.9 % (11.9-15.9); WHITE BLOOD COUNT 9.4 K/mm3 (4.0-10.0)
[2022-06-21 02:28] LABS: CHLORIDE 105 mmol/L (98-107); POTASSIUM 3.7 mmol/L (3.5-5.1); SODIUM 139 mmol/L (136-145)
[2022-06-21 02:29] LABS: CALCIUM 9.4 mg/dL (8.5-10.1)
[2022-06-21 02:30] LABS: ALBUMIN 3.7 g/dl (3.4-5.0); ANION GAP 11 MMOL/L (8-16); BLOOD UREA NITROGEN 12.9 mg/dL (7-18); CO2 23 mmol/L (21-32); GLUCOSE,RANDOM 153 mg/dL (74-106)
[2022-06-21 02:33] LABS: CREATININE 1.8 mg/dL (0.55-1.3); SGOT/AST 21 U/L (15-37); SGPT/ALT 33 U/L (13-61)
[2022-06-21 02:35] LABS: BILIRUBIN,TOTAL 0.4 mg/dL (0.2-1); TOT PROT 7.3 g/dl (6.4-8.2)
[2022-06-21 02:36] LABS: ALK PHOS 64 U/L (45-117)
[2022-06-21] MEDS ORDERED: FUROSEMIDE 40 MG/4 ML INJECTABLE VIAL IVPUSH ONE (02:52)
[2022-06-21 02:59] LABS: LACTIC ACID 7.1 mmol/L (0.4-2.0)
[2022-06-21] MEDS ORDERED: levETIRAcetam 500 MG/5 ML INJECTION VIAL IVPB ONE ×2 (03:02→03:03)
[2022-06-21] MEDS ORDERED: FUROSEMIDE 40 MG/4 ML INJECTABLE VIAL ONE (03:17)
[2022-06-21 06:44] LABS: BASO % 0.5 % (0-2.0); EOS % 0.1 % (0-4.5); HEMATOCRIT 42.4 % (35.4-49); HEMOGLOBIN 14.6 GM/dL (11.7-16.9); LYMPH % 7.6 % (8-40); MCH 27.1 pg (25.7-33.7); MCHC 34.3 g/dl (32.0-35.9); MEAN PLT VOLUME 8.2 fl (7.5-11.1); MONO % 5.4 % (3.8-10.2); NEUT % 86.4 % (42.8-82.8); PLATELET COUNT 267 10^3/uL (134-434); RBC 5.37 M/mm3 (4.00-5.60); RDW 14.8 % (11.9-15.9); WHITE BLOOD COUNT 10.7 K/mm3 (4.0-10.0)
[2022-06-21 06:51] LABS: POTASSIUM 3.4 mmol/L (3.5-5.1)
[2022-06-21 06:53] LABS: ALBUMIN 3.6 g/dl (3.4-5.0); BLOOD UREA NITROGEN 12.6 mg/dL (7-18); CALCIUM 8.8 mg/dL (8.5-10.1)
[2022-06-21 06:54] LABS: MAGNESIUM 2.3 mg/dL (1.8-2.4)
[2022-06-21 06:56] LABS: CREATININE 1.4 mg/dL (0.55-1.3); PHOSPHOROUS 3.1 mg/dL (2.5-4.9)
[2022-06-21 06:58] LABS: BILIRUBIN,TOTAL 0.4 mg/dL (0.2-1); TOT PROT 6.9 g/dl (6.4-8.2)
[2022-06-21 08:52] VITALS: RESP 20
[2022-06-21] MEDS ORDERED: levETIRAcetam 500 MG TABLET (FP) PO ONE (09:21)
[2022-06-21] MEDS ORDERED: RIVAROXABAN 2.5 MG TABLET PO SCH (10:00)
[2022-06-21] MEDS ORDERED: levETIRAcetam 500 MG TABLET (FP) PO SCH (10:00)
[2022-06-21] MEDS ORDERED: CYCLOBENZAPRINE HCL 10 MG TABLET (FP) PO PRN (12:35)
[2022-06-21] MEDS ORDERED: ALBUTEROL SO4 HFA INHALER IH PRN (12:35)
[2022-06-21 13:39] VITALS: BP 150/70; PULSE 81; TEMP 98.4
[2022-06-21] MEDS ORDERED: risperiDONE 1 MG TABLET PO SCH (22:00)
[2022-06-21] MEDS ORDERED: MONTELUKAST NA 10 MG TABLET PO SCH (22:00)
[2022-06-22] MEDS ORDERED: BUDESONIDE/FORMETEROL FUMARATE 160/4.5 mcg INHALER IH SCH (10:00)
[2022-06-22] MEDS ORDERED: LOSARTAN POTASSIUM 25 MG TABLET PO SCH (10:00)
[2022-06-22] MEDS ORDERED: amLODIPine BESYLATE 5 MG TABLET (FP) PO SCH (10:00)
[2022-06-25 17:07] LABS: FREE KAPPA,SERUM 29.3 mg/L (3.3-19.4)
== END 2022-06-21 13:43 | disposition left against medical advice (07) ==
LOC: JER 01:08 → JERBED 02:01
PROVIDERS: ADMIT Internal Medicine; ATTEND Internal Medicine
PROC: 3E033GC Introduction of Other Therapeutic Substance into Peripheral Vein, Percutaneous Approach (ICD-10-PCS; principal; 2022-06-21)
DX: R55 Syncope and collapse (principal); J81.1 Chronic pulmonary edema; I10 Essential (primary) hypertension; J45.909 Unspecified asthma, uncomplicated; M32.9 Systemic lupus erythematosus, unspecified; Z86.718 Personal history of other venous thrombosis and embolism; Z91.013 Allergy to seafood
CPT/HCPCS: 0241U-QW; 36415; 70450-TC; 71045-TC-FY; 72125-TC; 80053; 80061; 80177; 80307; 82803; 82962; 83605; 83735; 83883; 84100; 84484; 85025; 85379; 93005; 93010; 93306-TC; 93880-TC; 95816; 96374; 96375; 99285-25; G0378

== ENCOUNTER 2023-03-06 10:44 | Emergency (ER) | payer OTHER ==
[2023-03-06] MEDS ORDERED: DIPHTH,PERTUSS(ACELL),TET 0.5 ML DISP.SYRIN IM ONE ×2 (11:42→11:51)
[2023-03-06 14:24] VITALS: BP 102/68; PULSE 75; RESP 18; TEMP 97.3; BMI 38.5
== END 2023-03-06 13:06 | disposition home or self-care (01) ==
LOC: JERFT 10:44
PROC: 0HQFXZZ Repair Right Hand Skin, External Approach (ICD-10-PCS; principal; 2023-03-06)
PROC: 3E0234Z Introduction of Serum, Toxoid and Vaccine into Muscle, Percutaneous Approach (ICD-10-PCS; 2023-03-06)
DX: S61.011A Laceration without foreign body of right thumb without damage to nail, initial encounter (principal); S61.210A Laceration without foreign body of right index finger without damage to nail, initial encounter; W26.8XXA Contact with other sharp object(s), not elsewhere classified, initial encounter
CPT/HCPCS: 12001-25; 73130-TC-RT-FY; 90471; 90715; 99283-25

== ENCOUNTER 2023-03-13 10:43 | Emergency (ER) | payer OTHER ==
[2023-03-13 11:08] VITALS: BP 112/69; PULSE 81; RESP 18; TEMP 98.2; BMI 38.5
[2023-03-13] MEDS ORDERED: BACITRACIN 0.9 GM PACKET TP ONE (11:27)
[2023-03-13] MEDS ORDERED: BACITRACIN ZINC 15 GM TUBE TOPICAL OINTMENT ONE (11:30)
== END 2023-03-13 11:31 | disposition home or self-care (01) ==
LOC: JERFT 10:43
DX: Z48.02 Encounter for removal of sutures (principal)
CPT/HCPCS: 99283-25